=== PATIENT | male | born 1965 | race Caucasian/White ===

== ENCOUNTER → 2018-01-22 | Outpatient (CLI) | payer OTHER ==
[~2018-01-22] VITALS: Ht 403.9 cm; Wt 102.1 kg
[~2018-01-22] MED LIST: AMARYL2 MG PO; ATENOLOL 100MG100 MG PO; CHLORTHALIDONE25 MG PO; DARVOCET-N 1001 EAC1 PO; FLOMAX PO; GEMFIBROZIL 60600 MG PO; GLUCOPHAGE500 MG PO; HYDROCODONE-AP1 EAC6 PO; HYDROCODONE-AP1 EACH PO; IBUPROFEN 200200 M1 PO; IBUPROFEN 600600 M1 PO; IMITREX 50 MG T50 MG PO; KADIAN10 MG PO; LISINOPRIL40 MG PO; MORPHINE SULFAT15 M1 PO; MULTIVITAMINS PO; NEURONTIN 300300 M1 PO; NEXIUM40 MG PO; PERCOCET 5-3251 EACH PO; PRAVACHOL40 MG PO; PREDNISONE 10 M10 MG PO; PROMETHAZINE12.5 M1 PO; RANITIDINE HCL150 M1 PO; SINGULAIR 10 MG10 M1 PO; TOUJEO SOL300 UNIT/1 SUBQ; TUMS PO; ZANAFLEX2 MG PO
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
[2018-01-22 12:55] VITALS: BP 121/78
== END ==
LOC: PAIN 01-08 09:47
DX: M54.12 Radiculopathy, cervical region (principal)

== ENCOUNTER → 2018-01-29 | Outpatient (CLI) | payer OTHER ==
[~2018-01-29] VITALS: Ht 172.7 cm; Wt 114.8 kg
--- NOTE | ~2018-01-29 | HPC ---
[facility] [place] [address] [place] [address] PAIN MANAGEMENT CONSULTATION Name: FRANSISCO PINA Delta Room #: REG [facility] Aureliano#: [id number] Admission: 01/29/18 Attend Phys: Sylvester Hurst DO Discharge: Date of : 61 Report #: [id number] THIS REPORT FOR: //name// CC: Karen Hurst The patient is a very pleasant 52-year-old gentleman, prior seen in consultation 01/22/2018, we sought authorization for cervical epidural injection under fluoroscopy due to ongoing cervical radicular symptoms. The patient returns to pain clinic today for said injection. Pain continues to be problematic, rates it a 5-6 on VAS, pain is primarily neck, right shoulder and arm. He has some ongoing right radicular symptoms and headache. PHYSICAL EXAMINATION: Otherwise unchanged from presentation. ASSESSMENT: Symptomatic cervical radiculopathy in a gentleman with prior history of traumatic brain injury. PROCEDURE: Cervical epidural injection under fluoroscopy. PROCEDURE NOTE: After written and informed consent was obtained including risk of dural puncture, spinal cord trauma, paralysis and increased pain, the patient was taken to the fluoroscopy suite and placed in the prone position, with appropriate abdominal bolstering, neck was flexed, palms under the thighs. Skin was prepped with ChloraPrep. Sterile draping was applied. Skin wheal with 1% Xylocaine was raised. A 22-gauge 3-1/2 inch epidural Tuohy needle was placed via a midline approach at the C7-T1 interspace, advanced under biplanar fluoroscopy using continuous loss of resistance. With appropriate loss of resistance at the expected depth on lateral view, the glass loss of resistance syringe was disconnected. A low volume extension tubing was connected to the needle and a 5 mL syringe. Negative aspiration for cerebrospinal fluid or blood was noted. A 1 mL of Omnipaque was injected which showed spread within the epidural space on biplanar fluoroscopy. This was followed with 80 mg of triamcinolone plus 1 mL of 1.5% preservative Xylocaine. Needle was withdrawn to the interspinous ligament, 0.5 mL of Xylocaine was used to flush the needle. The needle was then completely withdrawn. The area was cleansed. Band-Aid was applied. The patient was allowed to move off the procedure table and ambulated to the recovery room, monitored for an appropriate period of time, discharged in good and stable condition. <ELECTRONICALLY SIGNED> By: Sylvester Hurst DO 02/01/18 [id number] [id number] Sylvester Hurst DO /nt
[2018-01-29 10:23] VITALS: BP 127/86
== END | disposition home or self-care (01) ==
LOC: PAIN 07:15
DX: M54.12 Radiculopathy, cervical region (principal); Z87.891 Personal history of nicotine dependence; Z88.0 Allergy status to penicillin; Z88.8 Allergy status to other drugs, medicaments and biological substances; Z79.899 Other long term (current) drug therapy; Z87.820 Personal history of traumatic brain injury